=== PATIENT | male | born 1955 | race African-American/Black ===

== ENCOUNTER 2022-01-21 14:18 | Emergency (ER) | payer OTHER, MEDICARE, BC ==
[~2022-01-21] VITALS: Ht 180.3 cm; Wt 68.0 kg
[2022-01-21 14:25] VITALS: BP 139/45
[2022-01-21] MEDS ORDERED: DAPA5TAB PO (14:25)
[2022-01-21] MEDS ORDERED: metformin (14:25)
[2022-01-21] MEDS ORDERED: IBUPROFEN 600MG TABLET PO ONE (15:30)
[2022-01-21] MEDS ORDERED: IBUP-2029 MT (16:54)
[2022-01-21] MEDS ORDERED: KETOROLAC 60MG/2ML VIAL IM ONE (17:00)
== END 2022-01-21 18:09 | disposition home or self-care (01) ==
LOC: ER 14:18
DX: S09.8XXA Other specified injuries of head, initial encounter (principal); T14.8XXA Other injury of unspecified body region, initial encounter; W01.0XXA Fall on same level from slipping, tripping and stumbling without subsequent striking against object, initial encounter; Y93.89 Activity, other specified; Y92.89 Other specified places as the place of occurrence of the external cause; Y99.8 Other external cause status; E11.9 Type 2 diabetes mellitus without complications; Z98.890 Other specified postprocedural states
CPT/HCPCS: 70450; 72125; 73502; 96372; 99284; J1885